=== PATIENT | male | born 1985 | race Caucasian/White ===

== ENCOUNTER 2019-04-06 08:41 | Outpatient (CLI) | payer BC ==
[~2019-04-06] VITALS: Ht 185.5 cm; Wt 128.9 kg
[2019-04-06] MEDS ORDERED: CETI10TA20 PO (09:32)
== END 2019-04-06 09:43 | disposition home or self-care (01) ==
LOC: PREOP 08:41
PROVIDERS: ATTEND Otolaryngology Otolaryngology/Facial Plastic Surgery
DX: Z01.818 Encounter for other preprocedural examination (principal)

== ENCOUNTER 2019-04-12 05:50 | Day surgery (SDC) | payer BC ==
[2019-04-12] VITALS (12 sets, daily range): BP systolic 148–166; BP diastolic 87–98
[~2019-04-12] VITALS: Ht 185.5 cm; Wt 128.9 kg
[~2019-04-12 05:50] MED LIST: CETI10TA20 PO
[2019-04-12 06:30] LABS: BASOPHILS # (AUTO) 0.1 10^3/uL (0.0-0.1); BASOPHILS % (AUTO) 1 % (0-10); EOSINOPHILS # (AUTO) 0.2 10^3/uL (0.0-0.3); EOSINOPHILS % (AUTO) 3 % (0-10); HEMATOCRIT 40 % (40-54); LYMPHOCYTES % (AUTO) 37 % (12-44); MEAN CORPUSCULAR HEMOGLOBIN 29 PG (25-34); MEAN CORPUSCULAR HGB CONC 35 G/DL (32-36); MEAN CORPUSCULAR VOLUME 82 FL (80-99); MEAN PLATELET VOLUME 9.4 FL (7.4-10.4); MONOCYTES # (AUTO) 0.8 X 10^3 (0.0-1.0); MONOCYTES % (AUTO) 10 % (0-12); NEUTROPHILS % (AUTO) 50 % (42-75); PLATELET COUNT 323 10^3/uL (130-400); RED CELL DISTRIBUTION WIDTH 13.2 % (10.0-14.5)
[2019-04-12] MEDS ORDERED: LACTATED RINGERS 1,000 ML IV PRN (06:47)
[2019-04-12 06:52] LABS: BUN/CREATININE RATIO 20; CALCIUM 9.4 MG/DL (8.5-10.1); CARBON DIOXIDE 25 MMOL/L (21-32); CHLORIDE 107 MMOL/L (98-107); CREATININE SERUM 0.85 MG/DL (0.60-1.30); GFR ESTIMATED > 60; GLUCOSE 85 MG/DL (70-105); POTASSIUM 3.7 MMOL/L (3.6-5.0); SODIUM 139 MMOL/L (135-145)
[2019-04-12] MEDS ORDERED: proPOfol 200 MG/20 ML (DIPRIVAN) VIAL IV ONE (06:58)
[2019-04-12] MEDS ORDERED: ROCURONIUM 10 MG/ML 5 ML SYRINGE IV ONE (06:58)
[2019-04-12] MEDS ORDERED: ONDANSETRON 4 MG/2 ML (SDV) Z0FRAN ONE (06:58)
[2019-04-12] MEDS ORDERED: SUCCINYLCHOLINE INJ 100 MG/5 ML SYR ONE (06:58)
[2019-04-12] MEDS ORDERED: SEVOFLURANE (ULTANE) 15 ML INHAL SOLN ONE ×3 (06:58→09:33)
[2019-04-12] MEDS ORDERED: DEXAMETHASONE 10 MG/ML (DECADRON) 1 ML VIAL ONE (06:58)
[2019-04-12] MEDS ORDERED: MIDAZOLAM 2 MG/2 ML (VERSED) VIAL ONE (06:59)
[2019-04-12] MEDS ORDERED: fentaNYL INJECTION 100 MCG/2 ML AMP ONE (06:59)
[2019-04-12] MEDS ORDERED: AMPICILLIN/SULBACTAM INJECTION 1.5 GM in NS (IVPB) 100 ML IV ONE (07:00)
[2019-04-12] MEDS ORDERED: HYDROCORTISONE 100 MG/2 ML (Solu-CORTEF) VIAL IV ONE (07:00)
[2019-04-12] MEDS ORDERED: GLYCOPYRROLATE 0.2 MG/ML (ROBINUL) 2 ML VIAL ONE ×2 (07:05→08:18)
[2019-04-12] MEDS ORDERED: NEOSTIGMINE 3 MG/3 ML VIAL ONE (07:05)
--- NOTE | 2019-04-12 07:07 | Progress Note-Pre Operative ---
Pre-Operative Progress Note H&P Reviewed The H&P was reviewed, patient examined and no changes noted. Date Seen by Provider: Apr 12, 2019 Time Seen by Provider: 06:45 Date H&P Reviewed: Apr 12, 2019 Time H&P Reviewed: 06:45 Pre-Operative Diagnosis: Bilat Chronic Sinsusitis , Deviated SEptum, Bilat hyper of INf Turbs SHAISTA DE LA TORRE MD Apr 12, 2019 07:07
[2019-04-12] MEDS ORDERED: LIDOCAINE/EPI 1%-1:100,000 (XYLOCAINE) 20ML ONE (07:12)
[2019-04-12] MEDS ORDERED: PHENYLEPHRINE 0.5% NASAL SPR (NEO-SYNEPHRINE) REG ONE (07:12)
[2019-04-12] MEDS ORDERED: BSS 15 ML ONE ×2 (07:12→09:18)
[2019-04-12] MEDS ORDERED: COCAINE HCL 4% 2 ML SYR ONE (07:12)
[2019-04-12] MEDS ORDERED: HYDROmorphone 2 MG/ML VIAL (DILAUDID) ONE (08:01)
[2019-04-12] MEDS ORDERED: D5 1/2 NS W/KCL 20 MEQ/L 1,000 ML IV SCH (09:13)
--- NOTE | 2019-04-12 09:13 | Progress Note-Post Operative ---
Post-Operative Progess Note Surgeon (s)/Citrus Picker (s) Surgeon SHAISTA DE LA TORRE MD Citrus Picker n/a Pre-Operative Diagnosis Bilat Chronic Sinsusitis , Deviated SEptum, Bilat hyper of INf Turbs Post-Operative Diagnosis same Post-Op Procedure Note Date of Procedure: Apr 12, 2019 Name of Procedure Performed: Bilat ESS, Nasal Septoplsaty, Bilat Red of Inf Turbs Description & Findings Description and Findings: n/a Anesthesia Type get Estimated Blood Loss minimal Packing none. Specimen(s) collected/removed bilt chroinc sinus disesae, nasal septum SHAISTA DE LA TORRE MD Apr 12, 2019 09:13
[2019-04-12] MEDS ORDERED: predniSONE 20 MG TAB PO ONE (09:15)
[2019-04-12] MEDS ORDERED: ONDANSETRON 4 MG (ZOFRAN) ORAL DISSOLVE TAB PO PRN (09:15)
[2019-04-12] MEDS ORDERED: oxyCODONE/APAP 5/325MG (PERCOCET 5) TABLET PO PRN (09:15)
[2019-04-12] MEDS ORDERED: ACETAMINOPHEN 325 MG TABLET PO PRN (09:15)
[2019-04-12] MEDS ORDERED: PROMETHAZINE INJ 25 MG/ML (PHENERGAN) AMP IVP PRN (09:15)
[2019-04-12] MEDS ORDERED: HYDROmorphone 2 MG/ML VIAL (DILAUDID) IV ONE (09:30)
[2019-04-12] MEDS ORDERED: ONDANSETRON 4 MG/2 ML (SDV) Z0FRAN IVP PRN (09:30)
[2019-04-12] MEDS ORDERED: AMOX-355 PO (10:40)
[2019-04-12] MEDS ORDERED: OXYC-471 PO (10:40)
[2019-04-12] MEDS ORDERED: PRD20T PO (10:40)
[2019-04-12] MEDS ORDERED: ONDA4TAB11 PO (10:40)
--- NOTE | 2019-04-12 13:19 | Anesthesia-General Post-Op ---
General Patient Condition Mental Status/LOC: Same as Preop Cardiovascular: Satisfactory Nausea/Vomiting: Absent Respiratory: Satisfactory Pain: Controlled Complications: Absent Post Op Complications Complications None Follow Up Care/Instructions Patient Instructions None needed. Anesthesia/Patient Condition Patient Condition Patient is doing well, no complaints, stable vital signs, no apparent adverse anesthesia problems. No complications reported per nursing. MENG PEDROZA CRNA Apr 12, 2019 13:19
== END 2019-04-12 11:50 | disposition home or self-care (01) ==
LOC: SDC 05:50
PROVIDERS: ATTEND Otolaryngology Otolaryngology/Facial Plastic Surgery
DX: J32.9 Chronic sinusitis, unspecified (principal); J34.2 Deviated nasal septum; J34.3 Hypertrophy of nasal turbinates; J98.8 Other specified respiratory disorders; R09.81 Nasal congestion; E66.9 Obesity, unspecified; Z68.37 Body mass index [BMI] 37.0-37.9, adult; Z79.899 Other long term (current) drug therapy; Z79.891 Long term (current) use of opiate analgesic
CPT/HCPCS: 36415; 80048; 85025; 87081; 88305